=== PATIENT | female | born 1975 | race Hispanic/Latino ===

== ENCOUNTER 2020-12-02 08:11 | Emergency (ER) | payer SELFPAY ==
[~2020-12-02] VITALS: Ht 149.9 cm; Wt 75.0 kg
[~2020-12-02 08:11] MED LIST: IBUPROFEN600 MG PO; NO MEDS; ULTRAM50 MG OR
[2020-12-02] MEDS ORDERED: BACTRIM DS1 TAB PO (08:31)
[2020-12-02 08:33] VITALS: BP 130/72
== END 2020-12-02 08:39 | disposition home or self-care (01) | DRG 603 ==
LOC: ED 08:11
DX: L02.413 Cutaneous abscess of right upper limb (principal)